=== PATIENT | male | born 1975 | race Caucasian/White ===

== ENCOUNTER 2024-06-10 15:02 | Outpatient (AMB) | payer BC, SELFPAY ==
--- NOTE | 2024-06-10 15:05 | A.OFFVIS_ITS ---
Intake Visit Reasons: 2nd opinion/intermittent testicular pain Intake Note: Patient is present for 2ND OPINION/INTERMITTENT TESTICULAR PAIN Urology Medication:NONE Antibiotic Allergy:NONE Blood Thinner:NONE Field Recruiter Required: No Allergies No Known Allergies Allergy (Verified 06/10/24 15:06) HPI Comments Details: Lamin is a pleasant male. He is a patient of Dr. Miller. He seen for the following urologic conditions - lower urinary tract symptoms - scrotal discomfort Prior use of Flomax with benefit Had intermittent right testicular pain Ultrasound scrotum performed normal Has some challenges with erections Recommend trial daily tadalafil Does confirm vaping and alcohol usage. BMI greater than 30. Review of Systems Const Denies chills and Denies fever(s) Card Reports no additional complaints and Denies syncope Resp Denies cough GI Denies abdominal pain and Denies heartburn Reports as per HPI and Denies change in libido Neuro Denies syncope Psych Denies change in libido Endo Denies change in libido Physical Exam Const General: cooperative, healthy appearing, comfortable and no acute distress Orientation/consciousness: patient oriented x3 HEENT Face and sinus: Yes normal facial exam Mouth: moist mucous membranes Neck Neck: Yes normal visual inspection, Yes full ROM and Yes trachea midline Chest Chest palpation & inspection: normal inspection of the chest Resp Effort & Inspection: normal respiratory effort, able to speak in complete sentences and no respiratory distress GI Inspection: Yes normal to inspection Back/Spine/Pelvis Cervical Spine: normal cervical lordosis Thoracic/Lumbar Spine: thoracic and lumbar spine normal to inspection Skin General skin exam: no rashes or lesions noted Neuro General: patient oriented x3, gait normal, tone normal and moves all extremities Extrem General: Yes normal to inspection and Yes capillary refill normal Assessment & Plan Assessment & Plan (1) Bladder outlet obstruction: Code(s): N32.0 - Bladder-neck obstruction Category: Medical Plan Trial tadalafil Three-month follow-up tele Medications: New tadalafil BIN N Group [facility] DR33 [id number] 5 mg PO DAILY 90 tabs 0RF 90 days N32.0 - Bladder-neck obstruction Patient Instructions: This note is constructed using voice recognition software. While every effort has been made to ensure accuracy professor of mechanical engineering errors may have been included. Imaging studies, laboratory and physical exam results were discussed and reviewed in detail. No major barriers to patient understanding were identified. An opportunity to ask questions regarding the treatment plan was provided. All questions were answered. The patient expressed understanding and agreement with the above treatment plan. The patient is aware they should contact our office by phone for worsening of their current condition or the appearance of new urologic symptoms. Compliance is encouraged with any medications and followup testing that is ordered. It is a privilege to participate in the urologic care of your patient. If you have any questions or concerns regarding treatment for the above conditions, or other urologic issues, please do not hesitate to contact me. The office telephone contact is [phone]. Sincerely, Dr Eulalio Morales MD, L[facility] - Urology Compassionate Specialist Care for the Genitourinary System Coding Level of Care Code New Pt Level 4 (28843) Diagnoses Bladder outlet obstruction N32.0
--- OUTSIDE RECORDS SUMMARY | 2024-06-10 18:33 | XMS_ITS | Data Portability ---
Author Organization [facility], [facility], [facility] Address [address] [place] [phone] Assessment No assessment recorded. Plan of Treatment Reminders Order Date Submit Date Provider Last Modified By Organization Details Last Modified Time Details Appointments None record ed. Lab None record ed. Referral None record ed. Procedures None record ed. Surgeries None record ed. Imaging None record ed. Medication Orders None record ed. Patient TargetsNo targets recorded. Patient InstructionsNo instructions recorded. Reason for Referral None Reported. Procedures Surgical History Date Name Laterality Status Provider Name and Address Organization Details Recorded Time 5 Yogesh - Colonoscopy completed Ori Zuñiga MD [address] [place] [address], [phone], [facility] [place] 05/14/2024 13:06:32 Imaging Results None recorded. Procedure Notes None recorded. Medical Equipment None Reported. Allergies Allergen ID Allergen Name Allergen Category Reaction Reaction Severity Criticality Documentation Date Start Date Code Code System Note Provider Name and Address Organization Details Recorded Time 632812 Product containin g penicilli n (product) medicatio n Not available Not available Not available 05/12/2024 09068 8001 SNOMED unkno wn react ion Effie Blunt RN [facility], [facility] 15:10:23 Vitals None Recorded Social History None recorded. Functional Status None recorded. Mental Status None recorded. Family History Nothing Reported. Medical History No medical history recorded. Past Encounters Encounter ID Performer Location Encounter Start Date Encounter Closed Date Diagnosis/Indication Diagnosis SNOMED-CT Code Diagnosis ICD10 Code Diagnosis Note [id number] Amaury Banks RN Endoscopy , [address] [address] 05/14/2024 12:13:00 05/14/2024 14:36:15 Health Concerns Section Related Observation LastModified by Organization Detai ls LastModified Time None Recorded Concern Status LastModified by Organization Details LastModified Time None Recorded Advance Directives Directive None Recorded Payers None recorded.
--- OUTSIDE RECORDS SUMMARY | 2024-06-10 18:33 | XMS_ITS | Continuity of Care Document ---
Author Organization [facility], Endoscopy, [facility] Address [address] [place] [phone] Assessment No assessment recorded. Plan of Treatment [...] Yogesh - Colonoscopy completed Ori Zuñiga MD [address] [place] [address], [phone], [facility] [place] 05/14/2024 13:06:32 Imaging Results None recorded. Procedure Notes None recorded. Medical Equipment None Reported. Allergies Allergen ID Allergen Name Allergen Category Reaction Reaction Severity Criticality Documentation Date Start Date Code Code System Note Provider Name and Address Organization Details Recorded Time 885826 Product containin g penicilli n (product) medicatio n Not available Not available Not available 05/12/2024 37491 8001 SNOMED unkno wn react ion Effie lBunt RN [facility], [facility] 5 15:10:23 Medications Name Sig Start Date Stop Date Status Note LastModified by Organization Details LastModified Time triamcinolone acetonide 0.1 % topical cream active Not Available Not Availabl e Not Available tamsulosin 0.4 mg capsule active Not Available Not Available N ot Available Laxative (bisacodyl) 5 mg tablet,delayed release active Not Available Not Available Not Available tamsulosin active Not Available Not Av ailable Not Available GaviLyte-G 236 gram-22.74 gram-6.74 gram-5.86 gram oral solution active Not Available Not Availabl e Not Available Zantac-PPI (Omeprazole) active Not Available Not Available Not Available Vitals None Recorded Social History None recorded. Functional Status None recorded. Mental Status None recorded. Family History Nothing Reported. Medical History No medical history recorded. Past Encounters Encounter ID Performer Location Encounter Start Date Encounter Closed Date Diagnosis/Indication Diagnosis SNOMED-CT Code Diagnosis ICD10 Code Diagnosis Note [id number] Amaury Banks RN Endoscopy , [address] [address] 05/14/2024 12:13:00 05/14/2024 14:36:15 Health Concerns Section Related Observation LastModified by Organization Detai ls LastModified Time None Recorded Concern Status LastModified by Organization Details LastModified Time None Recorded Payers Encounter Date Sequence Insurance Name Policy Number Policy Broussard Covered Member ID Broussard Member ID Guarantor Name 05/14/2024 1 ABIOLA: PREMA (PPO) [id number] 1 Marcello Pimentel [id number] Marcello Pimentel
== END 2024-06-10 16:16 | disposition home or self-care (01) ==
PROVIDERS: Visit Provider Urology
DX: N32.0 Bladder-neck obstruction (principal)
CPT/HCPCS: 99204

== ENCOUNTER 2024-08-26 15:15 | Outpatient (AMB) | payer BC, SELFPAY ==
--- OUTSIDE RECORDS SUMMARY | 2024-08-26 15:19 | XMS_ITS | Data Portability ---
Author Organization [facility], [facility], [facility] Address [address] [place] [phone] Assessment No assessment recorded. Plan of Treatment [...] Yogesh - Colonoscopy completed Ori Zuñiga MD [address] [place] [address], [phone], [facility] [place] 05/14/2024 13:06:32 Imaging Results None recorded. Procedure Notes None recorded. Medical Equipment None Reported. Allergies Allergen ID Allergen Name Allergen Category Reaction Reaction Severity Criticality Documentation Date Start Date Code Code System Note Provider Name and Address Organization Details Recorded Time 935172 Product containin g penicilli n (product) medicatio n Not available Not available Not available 05/12/2024 52750 8001 SNOMED unkno wn react ion Effie Blunt RN [facility], [facility] 15:10:23 Vitals None Recorded Social History None recorded. Functional Status None recorded. Mental Status None recorded. Family History Nothing Reported. Medical History No medical history recorded. Past Encounters Encounter ID Performer Location Encounter Start Date Encounter Closed Date Diagnosis/Indication Diagnosis SNOMED-CT Code Diagnosis ICD10 Code Diagnosis Note [id number] Ori Zuñiga MD Endoscopy , [address] [address] 05/14/2024 12:13:00 05/14/2024 14:36:15 Health Concerns Section Related Observation LastModified by Organization Detai ls LastModified Time None Recorded Concern Status LastModified by Organization Details LastModified Time None Recorded Advance Directives Directive None Recorded Payers None recorded.
--- NOTE | 2024-08-26 15:22 | MHC.OFFVIS ---
Intake Visit Reasons: 3m Intake Note: Patient is present for 3m f/u Urology Medication:TADALAFIL Antibiotic Allergy:NONE Blood Thinner:NONE Louver Door Assembler Required: No Allergies No Known Allergies Allergy (Verified 08/26/24 15:24) HPI Comments Details: Lamin is a pleasant male. He is a patient of Dr. Miller. He seen for the following urologic conditions - lower urinary tract symptoms - scrotal discomfort Benefitted from medication Continue prescription Lower urinary tract symptoms Prior use of Flomax with benefit Had intermittent right testicular pain Ultrasound scrotum performed normal Erectile dysfunction Daily tadalafil Does confirm vaping and alcohol usage. BMI greater than 30. Review of Systems Const Denies chills and Denies fever(s) Card Reports no additional complaints and Denies syncope Resp Denies cough GI Denies abdominal pain and Denies heartburn Reports as per HPI and Denies change in libido Neuro Denies syncope Psych Denies change in libido Endo Denies change in libido Physical Exam Const General: cooperative, healthy appearing, comfortable and no acute distress Orientation/consciousness: patient oriented x3 HEENT Face and sinus: Yes normal facial exam Mouth: moist mucous membranes Neck Neck: Yes normal visual inspection, Yes full ROM and Yes trachea midline Chest Chest palpation & inspection: normal inspection of the chest Resp Effort & Inspection: normal respiratory effort, able to speak in complete sentences and no respiratory distress GI Inspection: Yes normal to inspection Back/Spine/Pelvis Cervical Spine: normal cervical lordosis Thoracic/Lumbar Spine: thoracic and lumbar spine normal to inspection Skin General skin exam: no rashes or lesions noted Neuro General: patient oriented x3, gait normal, tone normal and moves all extremities Extrem General: Yes normal to inspection and Yes capillary refill normal Assessment & Plan Assessment & Plan (1) Bladder outlet obstruction: Code(s): N32.0 - Bladder-neck obstruction Category: Medical (2) Erectile dysfunction: Code(s): N52.9 - Male erectile dysfunction, unspecified Category: Medical Plan continue medications Medications: Refilled tadalafil LIONEL N Group [facility] 33 [id number] 5 mg PO DAILY 90 days 90 tabs 1RF N32.0 - Bladder-neck obstruction Patient Instructions: This note is constructed using voice recognition software. While every effort has been made to ensure accuracy zoning technician errors may have been included. Imaging studies, laboratory and physical exam results were discussed and reviewed in detail. No major barriers to patient understanding were identified. An opportunity to ask questions regarding the treatment plan was provided. All questions were answered. The patient expressed understanding and agreement with the above treatment plan. The patient is aware they should contact our office by phone for worsening of their current condition or the appearance of new urologic symptoms. Compliance is encouraged with any medications and followup testing that is ordered. It is a privilege to participate in the urologic care of your patient. If you have any questions or concerns regarding treatment for the above conditions, or other urologic issues, please do not hesitate to contact me. The office telephone contact is [phone]. Sincerely, Dr Eulalio Morales MD, [facility] - Urology Compassionate Specialist Care for the Genitourinary System Coding Level of Care Code Est Pt Level 3 (49942) Diagnoses Bladder outlet obstruction N32.0 Erectile dysfunction N52.9
== END 2024-08-26 16:31 | disposition home or self-care (01) ==
LOC: HO.HUSH 15:15
PROVIDERS: Visit Provider Urology
DX: N32.0 Bladder-neck obstruction (principal); N52.9 Male erectile dysfunction, unspecified
CPT/HCPCS: 99213

== ENCOUNTER → 2024-08-26 15:15 | Outpatient (BNVA) | payer BC, SELFPAY | PROVIDERS: Visit Provider Urology ==

== ENCOUNTER 2024-11-25 14:42 | Outpatient (AMB) | payer BC, SELFPAY ==
--- NOTE | 2024-11-25 14:43 | A.OFFVIS_ITS ---
Intake Visit Reasons: 3M FOLLOW UP Intake Note: Patient is present for 3m f/u TELEHEALTH Urology Medication:TADALAFIL Antibiotic Allergy:NONE Blood Thinner:NONE Food Sales Clerk Required: No Accompanied by: Self / Same As Patient Allergies No Known Allergies Allergy (Verified 11/25/24 14:44) HPI Comments Details: Lamin is a pleasant male. He is a patient of Dr. Miller. He seen for the following urologic conditions - lower urinary tract symptoms - scrotal discomfort Telemedicine Evaluation 15 min Consultation [employer] Video Three-month follow-up Has been on daily tadalafil Helping with bladder stability and with erections Prescription renewed Did discuss limiting fluid intake within 3 hours of bed to decrease nocturia Lower urinary tract symptoms Prior use of Flomax with benefit Had intermittent right testicular pain Ultrasound scrotum performed normal Erectile dysfunction Daily tadalafil Does confirm vaping and alcohol usage. BMI greater than 30. Review of Systems Const All systems reviewed & are unremarkable except as noted in HPI and below Reports no additional complaints Resp Reports no additional complaints GI Reports no additional complaints Reports as per HPI Musc Reports no additional complaints Physical Exam Telemedicine evaluation Appropriate responses Regular breathing rate and rhythm HEENT Head: Yes normal to inspection Ears: hearing grossly normal bilaterally Eyes General: appearance normal, both eyes and all related structures Neck Neck: Yes normal visual inspection Chest Chest palpation & inspection: normal inspection of the chest Resp Effort & Inspection: normal respiratory effort and able to speak in complete sentences Telehealth Telehealth Telehealth Platform: [employer]pt[employer] Location of provider rendering services: practice address Location of patient: address on file Patient Identification confirmed using: Name, : Yes Telehealth method: video Patient verbally consented to treatment: Yes Patient verbally consented to billing insurance company: Yes Patient informed of any privacy concerns related to visit: Yes Minutes spent on Phone/Video with Pt.: 15 Assessment & Plan Assessment & Plan (1) Erectile dysfunction: Code(s): N52.9 - Male erectile dysfunction, unspecified Category: Medical (2) Bladder outlet obstruction: Code(s): N32.0 - Bladder-neck obstruction Category: Medical Plan Six-month follow-up office Medications: Changed From tadalafil BIN PCN Group [facility] DR33 [id number] 5 mg PO DAILY 90 days 90 tabs 1RF N32.0 - Bladder-neck obstruction To tadalafil 5 mg PO DAILY 90 tabs 1RF 90 days N32.0 - Bladder-neck obstruction Patient Instructions: This note is constructed using voice recognition software. While every effort has been made to ensure accuracy faucet polisher errors may have been included. Imaging studies, laboratory and physical exam results were discussed and reviewed in detail. No major barriers to patient understanding were identified. An opportunity to ask questions regarding the treatment plan was provided. All questions were answered. The patient expressed understanding and agreement with the above treatment plan. The patient is aware they should contact our office by phone for worsening of their current condition or the appearance of new urologic symptoms. Compliance is encouraged with any medications and followup testing that is ordered. It is a privilege to participate in the urologic care of your patient. If you have any questions or concerns regarding treatment for the above conditions, or other urologic issues, please do not hesitate to contact me. The office telephone contact is [phone]. Sincerely, Dr Eulalio Morales MD, LOU[facility] - Urology Compassionate Specialist Care for the Genitourinary System Coding Level of Care Code Tele Est Pt Level 3 (81356) Diagnoses Erectile dysfunction N52.9 Bladder outlet obstruction N32.0
--- OUTSIDE RECORDS SUMMARY | 2024-11-25 14:49 | XMS_ITS | Encounter Summary ---
Author Organization [facility] Address [address] [place] [address] Care Team Providers Care Framing Mill Operator Name Role Phone Unknown, Provider Primary Care Provider Omar fatima Encounter Details Date Type Department Care Team (Late st Contact Info) Description 05/12/2024 Lab Requisition [facility] Pathology & Laboratory Medicine - [address] [address] Fermin Tamez [address] [place] [address], [address] [id number] Tinea unguium Social History Tobacco Use Types Packs/Day Years Used Date Smoking Tobacco: Never Assessed Sex and Gender Information Value Date Recorded Sex Assigned at Not on file Legal Sex Male 9:43 EST Gender Identity Not on file Sexual Orientation Not on file documented as of this encounter Plan of Treatment Not on file documented as of this encounter Procedures Procedure Name Priority Date/Time Associated Diagnosis Comments SURGICAL PATHOLOGY Today 05/11/2024 14 :41 EST Tinea unguium documented in this encounter Results * SURGICAL PATHOLOGY (05/11/2024 14:41 EST) Note to Patient The following pathology results have been interpreted by your pathologist and may be available to you before your health provider has had the opportunity to review them. Please allow time for your provider to receive these results and explore management options, if applicable. 05/14/2024 11:07 [facility] Final Diagnosis A. NAIL OF GREAT TOE, LEFT, CLIPPING: - Nail plate with abundant bacteria, predominantly at the edge. - PAS stain is negative for fungal organisms. 05/14/2024 11:07 [facility] Attestation By the signature below, the attending physician certifies that they have 1) personally conducted a gross and/or microscopic examination of the described specimen(s), and/or personally interpreted the results of laboratory testing of the described specimen(s), and 2) personally rendered or confirmed the above diagnosis. 05/14/2024 11:07 [facility] at 1107 EST Clinical History Onychomycosis; clinical diagnosis code: B35.1 05/14/2024 11:07 [facility] Gross Description A. Received fresh labelled with proper patient identification (initials H, M) and not otherwise specified are multiple baker-yellow nail fragments (2.2 x 1.7 x 0.3 cm). A gross evaluation and PAS stains are performed and the specimen is submitted entirely in A1 following softening in 10% potassium hydroxide. GERSON VILLA(ASCP) 05/13/2024 9:54 05/14/2024 11:07 [facility] Performing Lab [facility] 05/14/2024 11:07 [facility] Scanned Images 05/14/2024 11:07 [facility] Tissue ENTIRE NAIL BED / Unknown 05/11/2024 14:41 EST 05/13/2024 8:55 EST us Fermin Tamez PATHOLOGY ORDERABLES Final Resul t [facility] [address] [place] [address] documented in this encounter Visit Diagnoses Diagnosis Tinea unguium Dermatophytosis of nail documented in this encounter Care Teams Framing Mill Operator Relationship Specialty Start Date End Date Unknown, Provider, PCP - General 04/15/24 documented as of this encounter
--- OUTSIDE RECORDS SUMMARY | 2024-11-25 14:49 | XMS_ITS | Encounter Summary ---
Author Organization [facility] Address [address] [place] [phone] Phone Care Team Providers Care Materials Inspector Name Role Phone Gustavo Miller CNP Primary Care Provider [phone] Reason for Visit * Reason Onset Date Comments Appointment 10/02/2024 Encounter Details Date Type Department Care Team (Late st Contact Info) Description 10/02/2024 Telephone [facility] [address] [place] [address] Gustavo Miller CNP [address] [place] [phone] [email or web address] Appointment Social History Tobacco Use Types Packs/Day Years Used Date Smoking Tobacco: Former Cigarettes Smokeless Tobacco: Current Comments:vapes Alcohol Use Standard Drinks/Week Comments Yes 2 (1 standard drink = 0.6 oz pur e alcohol) daily Education Answer Date Recorded Are you interested in more education? Not on cyril e 08/19/2022 Are you concerned about learning? Not on file 08/19/2022 No 08/19/2022 No 08/19/2022 Digital Access Answer Date Recorded No 09/08/2022 No 09/08/2022 Reliable internet access at home? Not on file 09/08/2022 Device with a working camera? Not on file Sex and Gender Information Value Date Recorded Sex Assigned at Not on file Legal Sex Male 6:45 PM EST Gender Identity Not on file Sexual Orientation Not on file documented as of this encounter Progress Notes * Jimmie Cain - 10/02/2024 8:42 AM EDT Patient Lvm yesterday to reschedule appointment for today 10/02 I called and Lvm requesting for him to call us back to reschedule documented in this encounter Plan of Treatment Not on file documented as of this encounter Visit Diagnoses Not on filedocumented in this encounter Care Teams Materials Inspector Relationship Specialty Start Date End Date Gustavo Miller CNP [address] [place] [address] [place] [address] [email or web address] PCP - General Family Medicine 04/18/23 documented as of this encounter Additional Source Comments The information contained in this document represents components of the legal health record. It is not the complete legal health record.[facility]
== END 2024-11-25 16:25 | disposition home or self-care (01) ==
LOC: HO.HUSH 14:42
PROVIDERS: Visit Provider Urology
DX: N52.9 Male erectile dysfunction, unspecified (principal); N32.0 Bladder-neck obstruction
CPT/HCPCS: 99213